=== PATIENT | male | born 1955 | race African-American/Black ===

== ENCOUNTER 2024-11-21 02:45 | Day surgery (SDC) | payer MEDICARE, OTHER, SELFPAY ==
[2024-11-11 08:21] VITALS: BMI 34.9
--- OUTSIDE RECORDS SUMMARY | 2024-11-21 02:49 | XMS_ITS | Encounter Summary ---
Author Organization [facility] Facility Care Team Providers Care Vp Product Management Name Role Phone Kyler Melchor MD Primary Care Provid er Encounter Details Date Type Department Care Team (Latest Contact Info) Description 05/26/2016 Orders Only [facility] CLINCONV ProviderBakari MD [address] [place] [address] Social History Tobacco Use Types Packs/Day Years Used Date Smoking Tobacco: Never Assessed Sex and Gender Information Value Date Recorded Sex Assigned at Not on file Legal Sex Male 7:45 PM ORE MINER Gender Identity Not on file Sexual Orientation Not on file documented as of this encounter Plan of Treatment Not on file documented as of this encounter Procedures Procedure Name Priority Date/Time Associated Diagnosis Comments SCAN - PATHOLOGY 05/26/2016 12:0 0 AM ORE MINER documented in this encounter Results * SCAN - PATHOLOGY (05/26/2016 12:00 AM ORE MINER) Narrative 05/26/2016 12:00 AM ORE MINER Ordered by an unspecified provider. us Historical Provider Final Res ult documented in this encounter Visit Diagnoses Not on filedocumented in this encounter Additional Health Concerns Infection Onset Date Last Indicated Resolved Time COVID: Suspected 07/28/2021 07/28/2021 07/29/2021 1:44 AM ORE MINER COVID19 07/28/2021 07/28/2021 08/07/2021 3:05 AM ORE MINER COVID: Recovered Comment:Added based on recent COVID infection. 08/07/2021 08/18/2021 12/05/2021 3:05 AM C DT COVID: Suspected 08/23/2023 08/23/2023 08/23/2023 1:56 PM ORE MINER COVID19 08/23/2023 08/23/2023 09/02/2023 3:05 AM ORE MINER COVID: Recovered Comment:Added based on recent COVID infection. 09/02/2023 09/07/2023 12/01/2023 3:05 AM C DT documented as of this encounter Care Teams Vp Product Management Relationship Specialty Start Date End Date Kyler Melchor MD [address] [place] [address] PCP - General 10/03/18 documented as of this encounter
--- OUTSIDE RECORDS SUMMARY | 2024-11-21 02:49 | XMS_ITS | Encounter Summary ---
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 us Historical Provider Final Res ult documented in this encounter Visit Diagnoses Not on filedocumented in this encounter Additional Health Concerns Infection Onset Date Last Indicated Resolved Time COVID: Suspected 07/28/2021 07/28/2021 07/29/2021 1:44 AM EARLY CHILDHOOD ASSISTANT COVID19 07/28/2021 07/28/2021 08/07/2021 3:05 AM EARLY CHILDHOOD ASSISTANT COVID: Recovered Comment:Added based on recent COVID infection. 08/07/2021 08/18/2021 12/05/2021 3:05 AM C DT COVID: Suspected 08/23/2023 08/23/2023 08/23/2023 1:56 PM EARLY CHILDHOOD ASSISTANT COVID19 08/23/2023 08/23/2023 09/02/2023 3:05 AM EARLY CHILDHOOD ASSISTANT COVID: Recovered Comment:Added based on recent COVID infection. 09/02/2023 09/07/2023 12/01/2023 3:05 AM C DT documented as of this encounter Care Teams Repairer Screen Crusher Relationship Specialty Start Date End Date Kyler Melchor MD [address] [place] [address] PCP - General 10/03/18 documented as of this encounter
--- OUTSIDE RECORDS SUMMARY | 2024-11-21 02:49 | XMS_ITS | Clinical Summary ---
Author Organization [facility] Address [address] [place] [id number] Care Team Providers Care Screener Perfumer Name Role Phone Kyler Melchor MD Primary Care Provider + [phone] Social History Tobacco Use Types Packs/Day Years Used Date Smoking Tobacco: Never Assessed Sex and Gender Information Value Date Recorded Sex Assigned at Not on file Legal Sex Male 7:53 PM CDT Gender Identity Not on file Sexual Orientation Not on file Plan of Treatment Health Maintenance Due Date Last Done Comments Colorectal Cancer Screening Colonoscopy (10 Years) 1955 Hepatitis C 1974 DTaP, Tdap and Td Vaccines ( 1 - Tdap) 09/26/1975 Pneumococcal Vaccine: 50+ Years (1 of 1 - PCV) 2006 Zoster Vaccines (1 of 2) 2006 COVID-19 Vaccine ( - 2023-2 5 season) 2024 RSV Immunization or 60+ Years (1 - 1-dose 75+ series) 09/26/2031 Colorectal Cancer Screening FIT/FOBT (1 Year) Discontinued 08/08/2018, 08/08/2018, 08/08/2018 Meningococcal B Vaccine Aged Out No l onger eligible based on patient's age to complete this topic Meningococcal Vaccine Aged Out No antelmo destin eligible based on patient's age to complete this topic RSV Immunizations Under 20 Months Aged Out No longer eligible based on patient's age to complete this topic Procedures Procedure Name Priority Date/Time Associated Diagnosis Comments OCCULT BLOOD, FECES Routine 08/08/2018 2 :30 PM ASSET CARD CLERK Diarrhea from Last 3 Months or Most Recently Relevant to Health Maintenance Results * OCCULT BLOOD, FECES (08/08/2018 2:30 PM ASSET CARD CLERK) OCCULT BLOOD FECAL NEGATIVE NEGATIVE 08/08/2018 7:14 PM ASSET CARD CLERK [facility] STOOL SPECIMEN / Unknown 08/08/2018 2:30 PM ASSET CARD CLERK us Neville Mustafa MD BODY FLUIDS AND STOOLS ORDERABL ES Final Result [facility] [address] [facility] [place] [address], [place] [phone] from Last 3 Months or Most Recently Relevant to Health Maintenance Insurance Care Teams Screener Perfumer Relationship Specialty Start Date End Date Kyler Melchor MD [address] [facility] [place] [address] PCP - General FAMILY PRACTICE 07/16/18
--- OUTSIDE RECORDS SUMMARY | 2024-11-21 02:49 | XMS_ITS | Encounter Summary ---
Author Organization [facility] Facility Care Team Providers Care Anesthesia Assistant Name Role Phone Kyler Melchor MD Primary Care Provid er Encounter Details Date Type Department Care Team (Latest Contact Info) Description 04/26/2017 Orders Only [facility] CLINCONV ProviderBakari MD [address] [place] [address] Social History Tobacco Use Types Packs/Day Years Used Date Smoking Tobacco: Never Assessed Sex and Gender Information Value Date Recorded Sex Assigned at Not on file Legal Sex Male 7:45 PM COMMODITY MANAGER Gender Identity Not on file Sexual Orientation Not on file documented as of this encounter Plan of Treatment Not on file documented as of this encounter Procedures Procedure Name Priority Date/Time Associated Diagnosis Comments SCAN - PATHOLOGY 04/26/2017 12:0 0 AM CDT documented in this encounter Results * SCAN - PATHOLOGY (04/26/2017 12:00 AM CDT) Narrative 04/26/2017 12:00 AM CDT Ordered by an unspecified provider. us Historical Provider Final Res ult documented in this encounter Visit Diagnoses Not on filedocumented in this encounter Additional Health Concerns Infection Onset Date Last Indicated Resolved Time COVID: Suspected 07/28/2021 07/28/2021 07/29/2021 1:44 AM COMMODITY MANAGER COVID19 07/28/2021 07/28/2021 08/07/2021 3:05 AM COMMODITY MANAGER COVID: Recovered Comment:Added based on recent COVID infection. 08/07/2021 08/18/2021 12/05/2021 3:05 AM C DT COVID: Suspected 08/23/2023 08/23/2023 08/23/2023 1:56 PM COMMODITY MANAGER COVID19 08/23/2023 08/23/2023 09/02/2023 3:05 AM COMMODITY MANAGER COVID: Recovered Comment:Added based on recent COVID infection. 09/02/2023 09/07/2023 12/01/2023 3:05 AM C DT documented as of this encounter Care Teams Anesthesia Assistant Relationship Specialty Start Date End Date Kyler Melchor MD [address] [place] [address] PCP - General 10/03/18 documented as of this encounter
--- OUTSIDE RECORDS SUMMARY | 2024-11-21 02:49 | XMS_ITS | Encounter Summary ---
Author Organization [facility] Facility Care Team Providers Care Euclid Operator Name Role Phone Kyler Melchor MD Primary Care Provid er Encounter Details Date Type Department Care Team (Latest Contact Info) Description 09/24/2018 Orders Only [facility] CLINCONV ProviderBakari MD [address] [place] [address] Social History Tobacco Use Types Packs/Day Years Used Date Smoking Tobacco: Never Assessed Sex and Gender Information Value Date Recorded Sex Assigned at Not on file Legal Sex Male 7:45 PM CS ASSOCIATE Gender Identity Not on file Sexual Orientation Not on file documented as of this encounter Plan of Treatment Not on file documented as of this encounter Procedures Procedure Name Priority Date/Time Associated Diagnosis Comments COLONOSCOPY - SCAN 09/24/2018 12 :00 AM CDT documented in this encounter Results * COLONOSCOPY - SCAN (09/24/2018 12:00 AM CDT) Narrative 09/24/2018 12:00 AM CDT Ordered by an unspecified provider. us Historical Provider Final Res ult documented in this encounter Visit Diagnoses Not on filedocumented in this encounter Additional Health Concerns Infection Onset Date Last Indicated Resolved Time COVID: Suspected 07/28/2021 07/28/2021 07/29/2021 1:44 AM CS ASSOCIATE COVID19 07/28/2021 07/28/2021 08/07/2021 3:05 AM CS ASSOCIATE COVID: Recovered Comment:Added based on recent COVID infection. 08/07/2021 08/18/2021 12/05/2021 3:05 AM C DT COVID: Suspected 08/23/2023 08/23/2023 08/23/2023 1:56 PM CS ASSOCIATE COVID19 08/23/2023 08/23/2023 09/02/2023 3:05 AM CS ASSOCIATE COVID: Recovered Comment:Added based on recent COVID infection. 09/02/2023 09/07/2023 12/01/2023 3:05 AM C DT documented as of this encounter Care Teams Euclid Operator Relationship Specialty Start Date End Date Kyler Melchor MD [address] [place] [address] PCP - General 10/03/18 documented as of this encounter
--- OUTSIDE RECORDS SUMMARY | 2024-11-21 02:49 | XMS_ITS | Clinical Summary ---
Author Organization [address] Address [address] [place] [address] [place] [address] Care Team Providers Care Software Application Tester Name Role Phone Kyler Melchor MD Primary Care Provid er Allergies Active Allergy Reactions Criticality Noted Date Comments Ibuprofen Hives Medium 01/28/2019 Penicillin V Potassium Hives Medium 01/28/2019 Medications vitamin E acetate (VITAMIN E ORAL) Rx: Vitamin E Active multivit-min/iro n/folic acid/K (ADULTS MULTIVITAMIN ORAL) Rx: Multivitamin Adult - Tablet Active UNABLE TO FIND Med Name: Roadmapollgen 1 capsule daily Active atorvastatin (LIPITOR) 20 mg tabletIndication s:Dyslipidemia Take 1 tablet (20 mg total) by mouth daily 100 tablet 1 07/24/[address] (PROTONIX) 40 mg EC tabletIndication s:Gastroesophage al reflux disease without esophagitis Take 1 tablet (40 mg total) by mouth daily 100 tablet 1 07/25/19 25 Active metFORMIN XR (GLUCOPHAGE XR) 750 mg 24 hr tabletIndication s:Controlled type 2 diabetes mellitus without complication, without long-term current use of insulin (HCC) Take 1 tablet (750 mg total) by mouth 2 (two) times a day with meals 180 tablet 09/24/19 25 Active urea (CARMOL) 10 % creamIndications :Hyperkeratosis Apply topically as needed for dry skin 71 g 1 10/24/19 25 Active urea (CARMOL) 10 % creamIndications :Hyperkeratosis Apply topically as needed for dry skin 71 g 08/19/19 25 025 Discontin ued(Reord er) Active Problems Problem Noted Date Diagnosed Date Encounter for Medicare annual wellness exam 09/2024 Overview (09/10/2024): PMH: Last PSA: elevated, following with urology Last colonoscopy/cologuard: 10/2023, repeat 5 years Last Hep C: negative 2016 Last tdap: Reminded to get out pharmacy Last Prevnar/pneumovax: 09/10/24 Last Shingrix: Encouraged Last influenza: Up-to-date Last COVID: Up-to-date Last eye exam: Up-to-date Assessment & Plan (09/10/2024 10:24 AM CPR INSTRUCTOR): PMH: 09/10/24 Last PSA: elevated, following with urology Last colonoscopy/cologuard: 10/2023, repeat 5 years Last Hep C: negative 2016 Last tdap: Reminded to get out pharmacy Last Prevnar/pneumovax: 09/10/24 Last Shingrix: Encouraged Last influenza: Up-to-date Last COVID: Up-to-date Last eye exam: Up-to-date Controlled type 2 diabetes m moni without complication, without long-term current use of insulin 07/24/2024 Assessment & Plan (07/24/2024 4:05 PM CPR INSTRUCTOR): Chronic. Controlled. Last A1c of 6.5 on 08/2023. Continue metformin 750 mg daily, refilled today. Patient isn't on a statin. Monitor blood pressure. May need to start Douglas or Arb at next visit. He declines pneumonia vaccine today. Also declines single shingles vaccine. Patient given handout on diabetic diet. Encouraged to decrease carbohydrates.. Reminded patient to let eye doctor know that he has diabetes for eye exam. Class 2 severe obesity due t o excess calories with serious comorbidity and body mass index (BMI) of 35.0 to 35.9 in adult 07/24/2024 Assessment & Plan (09/10/2024 10:22 AM CPR INSTRUCTOR): Exercise 5 days a week, 30 mins per day recommended. Eat a heart healthy diet consisting of good, healthy protein (eggs, nuts, peanut butter, chicken, fish, turkey, less pork/beef), lots of vegetables, less carbohydrates and less sugar. Assessment & Plan (08/19/2024 10:13 AM CPR INSTRUCTOR): BMI Follow-up includes: education provided. Assessment & Plan (07/24/2024 4:04 PM CPR INSTRUCTOR): BMI Follow-up includes: nutrition counseling and exercise counseling. Gastroesophageal reflux disease without esophagi tis 07/24/2024 Assessment & Plan (07/24/2024 4:06 PM CPR INSTRUCTOR): Chronic. Stable. Continue to follow with GI, managing pantoprazole. 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 Stable. Continue rosuvastatin 20 mg, refilled today. Resolved Problems Problem Noted Date Diagnosed Date Resolved Date Nicotine dependence, cigaret trell, uncomplicated 10/04/2018 06/21/2022 Encounters Date Type Department Care Team Description 11/12/2024 7:[address] [facility] [address] [place] [address] 09/10/2024 10:10 AM CPR INSTRUCTOR Lab [facility] [address] [place] [id number] Controlled type 2 diabetes mellitus without complication, without long-term current use of insulin (HCC) 09/10/2024 9:30 AM CPR INSTRUCTOR Office Visit [facility] [address] [place] [phone] Elida Jacinto PA Encounter for Medicare annual wellness exam (Primary Dx); Controlled type 2 diabetes mellitus without complication, without long-term current use of insulin (HCC); Class 2 severe obesity due to excess calories with serious comorbidity and body mass index (BMI) of 35.0 to 35.9 in adult (HCC); Dyslipidemia; Gastroesophageal reflux disease without esophagitis; Obstructive sleep apnea (adult) (pediatric); Need for vaccination 09/10/2024 Results Follow-Up [facility] [address] [phone] Elida Jacinto PA Controlled type 2 diabetes mellitus without complication, without long-term current use of insulin ([facility]) 09/10/2024 Telephone [facility] [address] [phone] Elida Jacinto PA 08/29/2024 12:20 PM CPR IN[address] Lab [facility] Lab [address] [place] [id number] Controlled type 2 diabetes mellitus without complication, without long-term current use of insulin ([facility]); Inadequately controlled diabetes mellitus ([facility]); Elevated PSA; Encounter for Medicare annual wellness exam; Dyslipidemia from Last 3 Months Immunizations Immunization Administration Dates Next Due Flucelvax Influenza Quad 05/07/2020 Hep A, Adult 08/11/1997 Influenza, Quadrivalent, Alley l Culture-based MDCK, Preservative Free, Antibiotic Free, Intramuscular 05/07/2020 Influenza, Quadrivalent, Hig h Dose, Preservative Free, Intrr 04/22/2023,04/04/2022 Influenza, Trivalent, High D ose, Split, Preservative Free, Intramuscular 04/02/2024 Influenza, Trivalent, IM (MDV) 04/09/2021 Influenza, Unspecified 06/12/2023(Deferr ed: Patient Refused),05/07/2020 Influenza, Whole 05/10/1999,08/11/1997 MMR 01/19/1989 OPV 12/24/1980 Pneumococcal Conjugate Pcv20 09/10/2024 Td, adsorbed 09/21/1992 Medical History Medical History Date Comments Dyslipidemia Impaired fasting glucose Obstructive sleep apnea GERD (gastroesophageal reflux disease) Family History Medical History Relation Name Comments Cancer Father Brendan Cancer Mother Betzaida Relation Name Status Comments Father Brendan Mother Betzaida Social History Tobacco Use Types Packs/Day Years Used Date Smoking Tobacco: Some Days Cigarettes Cigars Smokeless Tobacco: Never Alcohol Use Standard Drinks/Week Comments Yes 0 (1 standard drink = 0.6 oz pur e alcohol) AUDIT-C Answer Date Recorded Q1: How often do you have a drink containing alc ohol? 2-4 times a month 09/10/2024 Q2: How many drinks containi ng alcohol do you have on a typical day when you are drinking? 1 or 2 09/10/2024 Q3: How often do you have si x or more drinks on one occasion? Never 09/10/2024 PHQ-2 Answer Date Recorded PHQ-2 Total Score (If total score is 3 or more points, staff should administer the PHQ-9) 0 09/10/2024 PHQ-9 Answer Date Recorded PHQ-9 Total Score 0 09/10/2024 Personal Safety Answer Date Recorded Have you ever been in or are you currently in a harmful physical or emotional relationship or is someone making you feel afraid or unsafe? Denies 06/02/2023 Sex and Gender Information Value Date Recorded Sex Assigned at Not on file Legal Sex Male 7:45 PM CPR INSTRUCTOR Gender Identity Not on file Sexual Orientation Not on file Obstetrics History Last Filed Vital Signs Vital Sign Reading Time Taken Comments Blood Pressure 142/82 09/10/2024 9:30 AM CPR INSTRUCTOR Pulse 78 09/10/2024 9:30 AM CPR INSTRUCTOR Temperature 36.6 C (97.9 F) 09/10/2024 9:30 AM CPR INSTRUCTOR Respiratory Rate 16 09/10/2024 9:30 AM CPR INSTRUCTOR Oxygen Saturation 98% 09/10/2024 9:30 AM CPR INSTRUCTOR Inhaled Oxygen Concentration - - Weight 107.5 kg (237 lb) 09/10/2024 9:30 AM CPR INSTRUCTOR Height 175.3 cm (5' 9 ) 09/10/2024 9:30 AM CPR INSTRUCTOR Body Mass Index 35 09/10/2024 9:30 AM CPR INSTRUCTOR Plan of Treatment Health Maintenance Due Date Last Done Comments Hepatitis B Screening 1974 DTaP/Tdap/Td Vaccine (1 - Tdap) 09/22/1992 3 Zoster Vaccine (1 of 2) 2006 Covid-19 Vaccine (2023-2 5 season) 2024 04/02/2024, 04/22/2023, 11/15/2022, Additional history exists Dilated Eye Exam 12/04/2024 12/05/2023, 11/29/2023 Hemoglobin A1C 03/13/2025 09/10/2024, 2 , 09/01/2022, Additional history exists Foot Exam 07/24/2025 07/24/2024, 03/0 10/2023, 09/11/2023, Additional history exists Albumin Creatinine Ratio, Urine 08/29/2025 , 08/29/2023 Lipid Panel 08/29/2025 08/29/2024, 022 , 09/01/2022, Additional history exists Depression Screening 09/10/2025 09/10/2024, 09/10/2024, 08/19/2024, Additional history exists Fall Risk Assessment 09/10/2025 09/10/2024, 08/19/2024, 09/11/2023, Additional history exists Well Visit 65+ 09/10/2025 09/10/2024, 03/0 10/2023, 09/11/2023, Additional history exists eGFR 11/12/2025 11/12/2024, 2 , 08/29/2023, Additional history exists Prostate Cancer Screening-PSA 08/29/2026, 08/29/2023, 09/01/2022, Additional history exists Colon Cancer Screening-Colonoscopy 10/29/2028 10/30/2023, 09/17/2018 Hepatitis C Screening Completed 01/02/2017 Abdominal Aortic Aneurysm (A AA) Screen Completed 06/02/2023, 12/26/2022 Colon Cancer Screening-CT Colonography Discontinued 10/30/2023, 09/17/2018 Colon Cancer Screening-DNA Stool Discontinued 10/30/19, 09/17/2018 Colon Cancer Screening-FIT Discontinued 10/30/2023, Colon Cancer Screening-Sigmoidoscopy Discontinued 10/30/2023, 09/17/2018 Influenza Vaccine Completed 04/02/2024, , 04/04/2022, Additional history exists Pneumococcal vaccine 65+ Completed 09/10/2024 Procedures Procedure Name Priority Date/Time Associated Diagnosis Comments EGFR Routine 11/12/2024 7:36 AM CDT BASIC METABOLIC PANEL Routine 11/12/2024 7:36 AM CDT HEMOGLOBIN A1C Routine 09/10/2024 10:14 AM CPR INSTRUCTOR Controlled type 2 diabetes mellitus without complication, without long-term current use of insulin (HCC) EGFR Routine 08/29/2024 12:40 PM CPR INSTRUCTOR Controlled type 2 diabetes mellitus without complication, without long-term current use of insulin (HCC) Inadequately controlled diabetes mellitus (HCC) Elevated PSA Encounter for Medicare annual wellness exam Dyslipidemia DIFFERENTIAL AUTO Routine 08/29/2024 12: 40 PM CPR INSTRUCTOR Controlled type 2 diabetes mellitus without complication, without long-term current use of insulin (HCC) Inadequately controlled diabetes mellitus (HCC) Elevated PSA Encounter for Medicare annual wellness exam Dyslipidemia CBC WITH AUTO DIFFERENTIAL Routine 08/29/2024 12:40 PM CPR INSTRUCTOR Controlled type 2 diabetes mellitus without complication, without long-term current use of insulin (HCC) Inadequately controlled diabetes mellitus (HCC) Elevated PSA Encounter for Medicare annual wellness exam Dyslipidemia COMPREHENSIVE METABOLIC PANEL Routine 08/29/2024 12:40 PM CPR INSTRUCTOR Controlled type 2 diabetes mellitus without complication, without long-term current use of insulin (HCC) Inadequately controlled diabetes mellitus (HCC) Elevated PSA Encounter for Medicare annual wellness exam Dyslipidemia LIPID PANEL Routine 08/29/2024 12:40 PM CPR INSTRUCTOR Controlled type 2 diabetes mellitus without complication, without long-term current use of insulin (HCC) Inadequately controlled diabetes mellitus (HCC) Elevated PSA Encounter for Medicare annual wellness exam Dyslipidemia PSA SCREEN Routine 08/29/2024 12:40 PM CPR INSTRUCTOR Controlled type 2 diabetes mellitus without complication, without long-term current use of insulin (HCC) Inadequately controlled diabetes mellitus (HCC) Elevated PSA Encounter for Medicare annual wellness exam Dyslipidemia ALBUMIN CREATININE RATIO, URINE Routine 08/29/2024 12:40 PM CPR INSTRUCTOR Controlled type 2 diabetes mellitus without complication, without long-term current use of insulin (HCC) Inadequately controlled diabetes mellitus (HCC) Elevated PSA Encounter for Medicare annual wellness exam Dyslipidemia DIABETES EYE EXAM Routine 12/05/2023 COLONOSCOPY Routine 10/30/2023 CT ABDOMEN PELVIS W CONTRAST ED 06/02/2023 1:14 PM CPR INSTRUCTOR HEPATITIS C ANTIBODY Routine 01/02/2017 9:25 AM CDT from Last 3 Months or Most Recently Relevant to Health Maintenance Results * eGFR (11/12/2024 7:36 AM CDT) eGFR 80 >=60 mL/min/1. 73 m2 Comment: Interpretive Data Reference Interval Normal >/= 90 mL/min/1.73m2 Mildly decreased* 60 - 89 mL/min/1.73m2 Mildly to moderately decreased 45 - 59 mL/min/1.73m2 Moderately to severely decreased 30 - 44 mL/min/1.73m2 Severely decreased 15 - 29 mL/min/1.73m2 Kidney Failure < 15 mL/min/1.73m2 *Relative to young adult level Estimated glomerular filtration rate is determined by the 2020 CKD-EPI equation recommended by the National Kidney Foundation (A Unifying Approach to GFR Estimation: Recommendations of the NKF-ASK Task Force on Reassessing the Inclusion of Race in Diagnosing Kidney Disease, JASN 2020). The CKD-EPI equation should not be used for patients with unstable renal function and has not been validated in children and those over 70. Current interpretive data was last reviewed 2021. Testing performed by: [facility], [address] [place] [address]., [id number] Blood 11/12/2024 7:36 AM CDT 11/12/2024 7:44 AM CDT us Codey Greer MD LAB BLOOD ORDERABLES Final Re sult [facility] [address] [facility] Department [place] [address] * Basic metabolic panel (11/12/2024 7:36 AM CDT) Sodium 139 135 - 145 mmol/L Comment:Testing performed by : [address] [address] Potassium, pl 4.3 3.3 - 4.9 mmol/L [facility] Comment: Hemolyzed; Potassium value may be falsely elevated by as much as 1.0 mmol/L. Suggest redraw and reanalysis. Testing performed by: [address], [place]., [address] Chloride 102 97 - 110 mmol/L [facility] Comment:Testing performed by : [address], [place]., [address] CO2 26 22 - 32 mmol/L [facility] Comment:Testing performed by : [address], [place]., [address] Anion gap 11 2 - 15 mmol/L [facility] Comment:Testing performed by : [address] [address] BUN 10 6 - 25 mg/dL [facility] Comment:Testing performed by : [address], [place]., [address] Creatinine 1.02 0.80 - 1.30 mg/dL [facility] Comment:Testing performed by : [address] [address] Glucose 122 70 - 199 mg/dL [facility] Comment: Interpretive Data Fasting glucose >/= 126 mg/dl is diagnostic for diabetes. Fasting is defined as no caloric intake for at least 8 hours. Fasting glucose between 100 mg/dl to 125 mg/dl is diagnostic of prediabetes. In a patient with classic symptoms of hyperglycemia or hyperglycemic crisis, a random glucose >/= 200 mg/dl is diagnostic for diabetes. In the absence of unequivocal hyperglycemia, results should be confirmed by repeat testing. The classification and Diagnosis of Diabetes Diabetes Care 202; 46: S19-S40. Current interpretive data was last revised 2022. Testing performed by: [address], [place]., [address] Calcium 9.7 8.5 - 10.3 mg/dL [facility] Comment:Testing performed by : [address] [address] Blood 11/12/2024 7:36 AM CDT 11/12/2024 7:44 AM CDT Codey Greer MD LAB BLOOD ORDERABLES Final Re sult Performing Organization Address [facility] de Phone Number [address] [place] [address] * (ABNORMAL) Hemoglobin A1c (09/10/2024 10:14 AM CPR INSTRUCTOR) Hgb A1C 6.7(H) 4.0 - 5.6 % Comment:Testing performed by : [address] [address] Estimated Average Glucose 146 mg/dL [facility] Comment: The ADA recommends reporting an estimated Average Glucose (eAG) with all Hemoglobin A1c results using the equation derived from a study of 507 normal and diabetic adults. Minority populations were underrepresented and children were not included. (Diabetes Care 31:0403-4838, 2008). The eAG is not equivalent to a fasting glucose. Testing performed by: [address] [address] Blood 09/10/2024 10:1 4 AM CPR INSTRUCTOR 09/10/2024 12:17 PM CPR INSTRUCTOR Elida ART LAB BLOOD ORDERABLES Nellie l Result Performing Organization Address [facility] [[email or web address]] Co de Phone Number [facility] [address] [facility] [employer] [place] [address] * eGFR (08/29/2024 12:40 PM CPR INSTRUCTOR) Pathologist [facility] eGFR 74 >=60 mL/min/1. 73 m2 Comment: Interpretive Data Reference Interval Normal >/= 90 mL/min/1.73m2 Mildly decreased* 60 - 89 mL/min/1.73m2 Mildly to moderately decreased 45 - 59 mL/min/1.73m2 Moderately to severely decreased 30 - 44 mL/min/1.73m2 Severely decreased 15 - 29 mL/min/1.73m2 Kidney Failure < 15 mL/min/1.73m2 *Relative to young adult level Estimated glomerular filtration rate is determined by the 2020 CKD-EPI equation recommended by the National Kidney Foundation (A Unifying Approach to GFR Estimation: Recommendations of the NKF-ASK Task Force on Reassessing the Inclusion of Race in Diagnosing Kidney Disease, JASN 202). The CKD-EPI equation should not be used for patients with unstable renal function and has not been validated in children and those over 70. Current interpretive data was last reviewed 2021. Testing performed by: [address] [address] Blood 08/29/2024 12:4 0 PM CPR INSTRUCTOR 08/29/2024 1:05 PM CPR INSTRUCTOR Kyler Melchor MD LAB BLOOD ORDERABLES Final Result Performing Organization Address City/State/[facility] [[email or web address]] Co de Phone Number [facility] Department [place] [address] * (ABNORMAL) Differential, auto (08/29/2024 12:40 PM CPR INSTRUCTOR) Neutrophil abs 4.2 1.5 - 6.5 K/cumm Comment:Testing performed by : [address] [address] Imm gran abs 0.0 0.0 - 0.1 K/cumm [facility] Comment:Testing performed by : [address] [address] Lymphocyte abs 4.0(H) 0.8 - 3.3 K/cumm [facility] Comment:Testing performed by : [address] [address] Monocyte abs 0.7 0.2 - 0.8 K/cumm [facility] Comment:Testing performed by : [address] [address] Eosinophil abs 0.1 0.0 - 0.5 K/cumm [facility] Comment:Testing performed by : [address] [address] Basophil abs 0.1 0.0 - 0.1 K/cumm [facility] Comment:Testing performed by : [address] [address] Neutrophil pct 46.8 % [facility] Comment: Interpretive Data Percent cell count reference ranges are not reported, since discordance with absolute values may lead to misinterpretation of CBC data. Current Interpretive Data was last revised on 2017. Testing performed by: [address] [address] Imm gran pct 0.1 % [facility] Comment: Interpretive Data Percent cell count reference ranges are not reported, since discordance with absolute values may lead to misinterpretation of CBC data. Current Interpretive Data was last revised on 2017. Testing performed by: [address] [address] Lymphocyte pct 44.1 % [facility] Comment: Interpretive Data Percent cell count reference ranges are not reported, since discordance with absolute values may lead to misinterpretation of CBC data. Current Interpretive Data was last revised on 2017. Testing performed by: [address] [address] Monocyte pct 7.5 % [facility] Comment: Interpretive Data Percent cell count reference ranges are not reported, since discordance with absolute values may lead to misinterpretation of CBC data. Current Interpretive Data was last revised on 2017. Testing performed by: [address] [address] Eosinophil pct 0.8 % [facility] Comment: Interpretive Data Percent cell count reference ranges are not reported, since discordance with absolute values may lead to misinterpretation of CBC data. Current Interpretive Data was last revised on 2017. Testing performed by: [address] [address] Basophil pct 0.7 % [facility] Comment: Interpretive Data Percent cell count reference ranges are not reported, since discordance with absolute values may lead to misinterpretation of CBC data. Current Interpretive Data was last revised on 2017. Testing performed by: [address] [address] Blood 08/29/2024 12:4 0 PM CPR INSTRUCTOR 08/29/2024 1:06 PM CPR INSTRUCTOR Kyler Melchor MD LAB BLOOD ORDERABLES Final Result Performing Organization Address [facility] de Phone Number [facility] [employer] [place] [address] * (ABNORMAL) PSA screen (08/29/2024 12:40 PM CPR INSTRUCTOR) PSA-Total 14.00(H) <=5.40 ng/mL Comment: Interpretive Data AGE SEX REFERENCE INTERVAL 0 minutes-150 years Female None 0 minutes-49 years Male None 50-59 years Male 0-3.90 60-69 years Male 0-5.40 70-79 years Male 0-6.20 80-150 years Male 0-6.20 The J[employer] PSA Total assay procedure was used. Results from different manufacturers or methods may not be comparable. Serial testing should be performed using the same method. Current interpretive data last revised 21. Testing performed by: [address] [address] Blood 08/29/2024 12:4 0 PM CPR INSTRUCTOR 08/29/2024 1:05 PM CPR INSTRUCTOR Kyler Melchor MD LAB BLOOD ORDERABLES Final Result Performing Organization Address [facility] de Phone Number [facility] [employer] [place] [address] * CBC with auto differential (08/29/2024 12:40 PM CPR INSTRUCTOR) WBC 9.0 3.8 - 9.9 K/cumm Comment:Testing performed by : [address] [address] Hgb 15.2 13.0 - 17.5 g/dL [facility] Comment:Testing performed by : [address] [address] Hct 46.1 38.9 - 50.3 % [facility] HER Comment:Testing performed by : [address] [address] Plt 259 150 - 400 K/cumm [facility] Comment:Testing performed by : [address] [address] MPV 9.7 9.1 - 12.3 fL [facility] Comment:Testing performed by : [address] [address] RBC 5.42 4.30 - 5.80 M/cumm [facility] Comment:Testing performed by : [address] [address] MCV 85.1 81.3 - 96.4 fL [facility] Comment:Testing performed by : [address] [address] MCH 28.0 27.1 - 33.3 pg [facility] Comment:Testing performed by : [address] [address] MCHC 33.0 32.3 - 35.7 g/dL [facility] Comment:Testing performed by : [address] [address] RDW CV 13.7 11.1 - 14.9 % [facility] Comment:Testing performed by : [address] [address] RDW SD 42.5 35.7 - 48.1 fL [facility] Comment:Testing performed by : [address] [address] NRBC abs 0.00 0.00 - 0.01 K/cumm [facility] Comment:Testing performed by : [address] [address] Blood 08/29/2024 12:4 0 PM CPR INSTRUCTOR 08/29/2024 1:06 PM CPR INSTRUCTOR us Kyler Melchor MD LAB BLOOD ORDERABLES Final Result [facility] [address] [facility] Department [place] [address] * Albumin Creatinine Ratio, Urine (08/29/2024 12:40 PM CPR INSTRUCTOR) Albumin Ur 15.6 mg/L Comment: Interpretive Data No reference range established. Current interpretive data was last revised 2018. Testing performed by: [address] [address] Creatinine Ur 248.0 mg/dL [facility] Comment: Interpretive Data No reference range established. Current interpretive data was last revised 2018. Testing performed by: [address] [address] Albumin Creatinine Ratio, Ur 6 1 - 29 mg/g RUBEN Comment:Testing performed by : [address] [address] Urine 08/29/2024 12:4 0 PM CPR INSTRUCTOR 08/29/2024 1:09 PM CPR INSTRUCTOR Kyler Melchor MD LAB URINE ORDERABLES Final Result RUBEN [address] [facility] Department [place] [address] * Lipid panel (08/29/2024 12:40 PM CPR INSTRUCTOR) Cholesterol 156 30 - 199 mg/dL Comment: Interpretive Data Ages < or = 19 years Acceptable: <170 mg/dL Borderline high: 170-199 mg/dL High: >or= 200 mg/dL Ages > or = 20 years Desirable: <200 mg/dL Borderline high: 200-239 mg/dL High: >or= 240 mg/dL Literature References: 1. Expert Panel on Integrated Guidelines for Cardiovascular Health and Risk Reduction in Children and Adolescents. Pediatrics 2011;128:S213 2. NCEP Expert Panel. Circulation 2004;110:227 Current Interpretive Data was last revised on 2018. Testing performed by: [address] [address] Triglycerides 105 <=149 mg/dL RUBEN Comment: Interpretive Data Ages < or = 9 years Acceptable: <75 mg/dL Borderline high: 75-99 mg/dL High: >or= 100 mg/dL Ages 10 to 20 years Acceptable: <90 mg/dL Borderline high: 90-129 mg/dL High: >or= 130 mg/dL Ages > or = 20 years Desirable: <150 mg/dL Borderline high: 150-199 mg/dL High: 200-499 mg/dL Very high: >or= 499 mg/dL Literature References: 1. Expert Panel on Integrated Guidelines for Cardiovascular Health and Risk Reduction in Children and Adolescents. Pediatrics 2011;128:S213 2. NCEP Expert Panel. Circulation 2004;110:227 Current Interpretive Data was last revised on 2018. Testing performed by: [address] [address] HDL 44 >=40 mg/dL RUBEN Comment: Interpretive Data Ages < or = 19 years Acceptable: >45 mg/dL Borderline low: 40-45 mg/dL Low: <40 mg/dL Ages > or = 20 years Desirable: >or= 60 mg/dL Low: <40 mg/dL Literature References: 1. Expert Panel on Integrated Guidelines for Cardiovascular Health and Risk Reduction in Children and Adolescents. Pediatrics 2011;128:S213 2. NCEP Expert Panel. Circulation 2004;110:227 Current Interpretive Data was last revised on 2018. Testing performed by: [address] [address] LDL, calculated 93 <=129 mg/dL RUBEN Comment: Interpretive Data Ages < or = 19 years Acceptable: <110 mg/dL Borderline high: 110-129 mg/dL High: >or= 130 mg/dL Ages > or = 20 years Optimal: <100 mg/dL Near optimal: 100-129 mg/dL Borderline high: 130-159 mg/dL High: >160 mg/dL Calculated using the Enrique LDL-C estimating equation. This equation was implemented on 2024. Prior to this date LDL-C was estimated using the Friedewald equation. Literature References: 1. Expert Panel on Integrated Guidelines for Cardiovascular Health and Risk Reduction in Children and Adolescents. Pediatrics 2011;128:S213 2. NCEP Expert Panel. Circulation 2004;110:227 3. Enrique Lind et al. GARRISON Cardiol. 2020 November 07;5(5):540-548. doi: 10.1001/[email or web address] Current Interpretive Data was last revised on 2024. Testing performed by: [facility], [address] [place] [address], [place]., [address] Non-HDL Cholesterol 112 mg/dL RUBEN HER Comment: Interpretive Data Ages < or = 19 years Acceptable: <120 mg/dL Borderline high: 120-144 mg/dL High: >145 mg/dL Ages > or = 20 years When triglycerides are >200 mg/dL, Non-HDL cholesterol is a secondary target of therapy with treatment goals that are 30 mg/dL greater than the LDL cholesterol target. Literature References: 1. Expert Panel on Integrated Guidelines for Cardiovascular Health and Ris [id number]|2024-11-21 12:52:50|2024-11-21 12:52:50|[id number]||||"Anes - Initial Pre Proc Eval Procedure: Operation Date: 11/21/24 13:00 Proposed Procedures p Trans Rectal Ultrasound Fusion Guided Prostate Biopsy - Fran Bowman MD Date/Time: 11/21/24 12:52 Surgeon: Fran Bowman MD Pre Op Diagnosis: elevated PSA Patient Data Age: 69 Gender: M Height: 1.73 m Weight: 102.7 kg Last Vital Signs Temp 36.4 C L 11/21/24 11:13 Pulse 64 11/21/24 11:13 Resp 16 11/21/24 11:13 BP 150/1 H 11/21/24 11:13 Pulse Ox 99 11/21/24 11:13 O2 Del Method Room Air 11/21/24 11:13 Allergies Allergy/AdvReac Type Severity Reaction Status Date / Time Penicillins Allergy Unknown hives and Verified 11/21/24 11:50 itching NSAIDS (Non-Steroidal Allergy hives and Verified 11/21/24 11:50 Anti-Inflamma itching Home Medications Medication Instructions Recorded Confirmed Type atorvastatin 20 mg tablet 20 mg PO DAILY 11/11/24 11/11/24 History metformin 750 mg tablet,extended 750 mg PO BID 11/11/24 11/11/24 History release 24 hr multivit,Ca,min-iron 8 mg-folic 1 tablet PO DAILY 11/11/24 11/11/24 History acid 200 mcg-lycopene 600 mcg tablet ([facility]) pantoprazole 40 mg tablet,delayed 40 mg PO DAILY 11/11/24 11/11/24 History release vitamin E 268 mg (400 unit) capsule 268 mg PO DAILY 11/11/24 11/11/24 History Laboratory Tests 11/21/24 11:26 POC Capillary Glucose 115 H mg/dl (65-105) Patient hx anesthesia problems: none Family hx anesthesia problems: none Results Review: All pre-operative results and documents have been reviewed as part of the pre-operative evaluation. [facility] Past Medical History Medical History (Updated 11/21/24 @ 12:53 by Codey Greer MD) Diabetes LAILA (obstructive sleep apnea) Social History Social History Tobacco type: cigars Additional smoking assessment comments: SMOKES A CIGAR EVERY 2 WK. X 3 YRS Alcohol intake: current Alcohol use details: ONE DRINK PER MONTH Living arrangements: with family Spiritual care concerns: No Anes - Eval Final PreProcedure Day of Procedure 11/21/24 12:52 Patient weight: obese Heart: regular rate and rhythm Lungs: clear to auscultation Airway: Mallampati scale class II Neurological: alert and oriented Last oral intake: >/= 8 hours ASA classification: III Emergent: no Anesthetic plan: proceed Anesthesia type and monitoring: general GIVS and standard monitoring Results Review: All pre-operative results and documents have been reviewed as part of the pre-operative evaluation. Informed Consent: The patient's anesthetic plan and its attendant risks and benefits were discussed with the patient/family/POA. Questions were solicited and answers provided to the satisfaction of the patient/family/POA."
--- OUTSIDE RECORDS SUMMARY | 2024-11-21 02:49 | XMS_ITS | Encounter Summary ---
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 09/02/2023 09/07/2023 12/01/2023 3:05 AM C DT documented as of this encounter Care Teams Bus Person Dishwasher Relationship Specialty Start Date End Date Kyler Melchor MD [address] [place] [address] PCP - General 10/03/18 documented as of this encounter
--- OUTSIDE RECORDS SUMMARY | 2024-11-21 02:49 | XMS_ITS | Referral Summary ---
Author Organization [address] Address [address] [place] [id number] Care Team Providers Care Hygiene Teacher Name Role Phone Kyler Melchor MD Primary Care Provid er Encounters Date Type Department Care Team Description 11/12/2024 7:30 AM CDT Lab [facility] [place] [facility] [address] [place] [address] 09/10/2024 Results Follow-Up [address] [phone] Elida Jacinto PA Controlled type 2 diabetes mellitus without complication, without long-term current use of insulin ([facility]) 09/10/[address] [phone] Elida Jacinto PA 09/10/2024 10:10 AM PAYROLL HUMAN RESOURCES ASSISTANT Lab [facility] [address] [place] [phone] Controlled type 2 diabetes mellitus without complication, without long-term current use of insulin (HCC) 09/10/2024 9:30 AM PAYROLL HUMAN RESOURCES ASSISTANT Office Visit [address] [phone] Elida Jacinto PA Encounter for Medicare annual wellness exam (Primary Dx); Controlled type 2 diabetes mellitus without complication, without long-term current use of insulin (HCC); Class 2 severe obesity due to excess calories with serious comorbidity and body mass index (BMI) of 35.0 to 35.9 in adult (HCC); Dyslipidemia; Gastroesophageal reflux disease without esophagitis; Obstructive sleep apnea (adult) (pediatric); Need for vaccination 08/29/2024 12:20 PM PAYROLL HUMAN RESOURCES ASSISTANT Lab [facility] [place] [facility] [address] [place] [id number] Controlled type 2 diabetes mellitus without complication, without long-term current use of insulin (HCC); Inadequately controlled diabetes mellitus (HCC); Elevated PSA; Encounter for Medicare annual wellness exam; Dyslipidemia from Last 3 Months Allergies Active Allergy Reactions Criticality Noted Date Comments Ibuprofen Hives Medium 01/28/2019 Penicillin V Potassium Hives Medium 01/28/2019 Medications vitamin E acetate (VITAMIN E ORAL) Rx: Vitamin E Active multivit-min/iro n/folic acid/K (ADULTS MULTIVITAMIN ORAL) Rx: Multivitamin Adult - Tablet Active UNABLE TO FIND Med Name: Bitnami 1 capsule daily Active atorvastatin (LIPITOR) 20 [...] Up-to-date Assessment & Plan (09/10/2024 10:24 AM PAYROLL HUMAN RESOURCES ASSISTANT): PMH: 09/10/24 Last PSA: elevated, following with urology Last colonoscopy/cologuard: 10/2023, repeat 5 years Last Hep C: negative 2016 Last tdap: Reminded to get out pharmacy Last Prevnar/pneumovax: 09/10/24 Last Shingrix: Encouraged Last influenza: Up-to-date Last COVID: Up-to-date Last eye exam: Up-to-date Controlled type 2 diabetes m moni without complication, without long-term current use of insulin 07/24/2024 Assessment & Plan (07/24/2024 4:05 PM PAYROLL HUMAN RESOURCES ASSISTANT): Chronic. Controlled. Last A1c of 6.5 on [...] 07/24/2024 Assessment & Plan (09/10/2024 10:22 AM PAYROLL HUMAN RESOURCES ASSISTANT): Exercise 5 days a week, 30 mins per day recommended. Eat a heart healthy diet consisting of good, healthy protein (eggs, nuts, peanut butter, chicken, fish, turkey, less pork/beef), lots of vegetables, less carbohydrates and less sugar. Assessment & Plan (08/19/2024 10:13 AM PAYROLL HUMAN RESOURCES ASSISTANT): BMI Follow-up includes: education provided. Assessment & Plan (07/24/2024 4:04 PM PAYROLL HUMAN RESOURCES ASSISTANT): BMI Follow-up includes: nutrition counseling and exercise counseling. Gastroesophageal reflux disease without esophagi tis 07/24/2024 Assessment & Plan (07/24/2024 4:06 PM PAYROLL HUMAN RESOURCES ASSISTANT): Chronic. Stable. Continue to follow with GI, managing pantoprazole. Dependence on other enabling machines and device s 01/06/2017 Obstructive sleep apnea (adult) (pediatric) 12/10 Dyslipidemia 12/26/2016 Assessment & Plan (07/24/2024 4:05 PM PAYROLL HUMAN RESOURCES ASSISTANT): Chronic. Stable. Continue rosuvastatin 20 mg, refilled today. Resolved Problems Problem Noted Date Diagnosed Date Resolved Date Nicotine dependence, cigaret trell, uncomplicated 10/04/2018 06/21/2022 Immunizations Immunization Administration Dates Next Due Flucelvax [...] Pneumococcal Conjugate Pcv20 09/10/2024 Td, adsorbed 09/21/1992 Social History Tobacco Use Types Packs/Day Years [...] on file Legal Sex Male 7:45 PM PAYROLL H[employer] RESOURCES ASSISTANT Gender Identity Not on file Sexual Orientation Not on file Last Filed Vital Signs Vital Sign Reading Time Taken Comments Blood Pressure 142/82 09/10/2024 9:30 AM PAYROLL HUMAN RESOURCES ASSISTANT Pulse 78 09/10/2024 9:30 AM PAYROLL HUMAN RESOURCES ASSISTANT Temperature 36.6 C (97.9 F) 09/10/2024 9:30 AM PAYROLL HUMAN RESOURCES ASSISTANT Respiratory Rate 16 09/10/2024 9:30 AM PAYROLL HUMAN RESOURCES ASSISTANT Oxygen Saturation 98% 09/10/2024 9:30 AM PAYROLL HUMAN RESOURCES ASSISTANT Inhaled Oxygen Concentration - - Weight 107.5 kg (237 lb) 09/10/2024 9:30 AM PAYROLL HUMAN RESOURCES ASSISTANT Height 175.3 cm (5' 9 ) 09/10/2024 9:30 AM PAYROLL HUMAN RESOURCES ASSISTANT Body Mass Index 35 09/10/2024 9:30 AM PAYROLL HUMAN RESOURCES ASSISTANT Plan of Treatment Not on file Procedures Procedure Name Priority Date/Time Associated Diagnosis Comments EGFR Routine 11/12/2024 7:36 AM CDT BASIC METABOLIC PANEL Routine 11/12/2024 7:36 AM CDT HEMOGLOBIN A1C Routine 09/10/2024 10:14 AM PAYROLL HUM[employer] RESOURCES ASSISTANT Controlled type 2 diabetes mellitus without complication, without long-term current use of insulin (HCC) EGFR Routine 08/29/2024 12:40 PM PAYROLL HUMAN RESOURCES ASSISTANT Controlled type 2 diabetes mellitus without complication, without long-term current use of insulin (HCC) Inadequately controlled diabetes mellitus (HCC) Elevated PSA Encounter for Medicare annual wellness exam Dyslipidemia DIFFERENTIAL AUTO Routine 08/29/2024 12: 40 PM PAYROLL HUMAN RESOURCES ASSISTANT Controlled type 2 diabetes mellitus without complication, without long-term current use of insulin (HCC) Inadequately controlled diabetes mellitus (HCC) Elevated PSA Encounter for Medicare annual wellness exam Dyslipidemia CBC WITH AUTO DIFFERENTIAL Routine 08/29/2024 12:40 PM PAYROLL HUMAN RESOURCES ASSISTANT Controlled type 2 diabetes mellitus without complication, without long-term current use of insulin (HCC) Inadequately controlled diabetes mellitus (HCC) Elevated PSA Encounter for Medicare annual wellness exam Dyslipidemia COMPREHENSIVE METABOLIC PANEL Routine 08/29/2024 12:40 PM PAYROLL HUMAN RESOURCES ASSISTANT Controlled type 2 diabetes mellitus without complication, without long-term current use of insulin (HCC) Inadequately controlled diabetes mellitus (HCC) Elevated PSA Encounter for Medicare annual wellness exam Dyslipidemia LIPID PANEL Routine 08/29/2024 12:40 PM PAYROLL HUMAN RESOURCES ASSISTANT Controlled type 2 diabetes mellitus without complication, without long-term current use of insulin (HCC) Inadequately controlled diabetes mellitus (HCC) Elevated PSA Encounter for Medicare annual wellness exam Dyslipidemia PSA SCREEN Routine 08/29/2024 12:40 PM PAYROLL HUMAN RESOURCES ASSISTANT Controlled type 2 diabetes mellitus without complication, without long-term current use of insulin (HCC) Inadequately controlled diabetes mellitus (HCC) Elevated PSA Encounter for Medicare annual wellness exam Dyslipidemia ALBUMIN CREATININE RATIO, URINE Routine 08/29/2024 12:40 PM PAYROLL HUMAN RESOURCES ASSISTANT Controlled type 2 diabetes mellitus without complication, without long-term current use of insulin (HCC) Inadequately controlled diabetes mellitus (HCC) Elevated PSA Encounter for Medicare annual wellness exam Dyslipidemia DIABETES EYE EXAM Routine 12/05/2023 COLONOSCOPY Routine 10/30/2023 CT ABDOMEN PELVIS W CONTRAST ED 06/02/2023 1:14 PM PAYROLL HUMAN RESOURCES ASSISTANT HEPATITIS C ANTIBODY Routine 01/02/2017 9:25 AM [...] was last reviewed 2021. Testing performed by: [address] [address] Blood 11/12/2024 7:36 AM CDT 11/12/2024 7:44 AM CDT Codey Greer MD LAB BLOOD ORDERABLES Final Re sult [facility] [address] [facility] [place] [address] * Basic metabolic panel (11/12/2024 7:36 AM CDT) Sodium 139 135 - 145 mmol/L Comment:Testing performed by : [address] [address] Potassium, pl 4.3 3.3 - 4.9 mmol/L RUBEN HER Comment: Hemolyzed; Potassium value may be falsely elevated by as much as 1.0 mmol/L. Suggest redraw and reanalysis. Testing performed by: [address] [address] Chloride 102 97 - 110 mmol/L RUBEN Comment:Testing performed by : [address] [address] CO2 26 22 - 32 mmol/L RUBEN Comment:Testing performed by : [address] [address] Anion gap 11 2 - 15 mmol/L RUBEN Comment:Testing performed by : [address] [address] BUN 10 6 - 25 mg/dL RUBEN Comment:Testing performed by : [address] [address] Creatinine 1.02 0.80 - 1.30 mg/dL RUBEN Comment:Testing performed by : [address] [address] Glucose 122 70 - 199 mg/dL RUBEN Comment: Interpretive Data Fasting glucose >/= 126 [...] was last revised 2022. Testing performed by: [address] [address] Calcium 9.7 8.5 - 10.3 mg/dL RUBEN Comment:Testing performed by : [address] [address] Blood 11/12/2024 7:36 AM CDT 11/12/2024 7:44 AM CDT us Codey Greer MD LAB BLOOD ORDERABLES Final Re sult RUBEN [address] [facility] [place] [address] * (ABNORMAL) Hemoglobin A1c (09/10/2024 10:14 AM PAYROLL HUMAN RESOURCES ASSISTANT) Hgb A1C 6.7(H) 4.0 - 5.6 % Comment:Testing performed by : [facility], [address] [place] [address]., [address] Estimated Average Glucose 146 mg/dL RUBEN Comment: The ADA recommends reporting an estimated Average Glucose (eAG) with all Hemoglobin A1c results using the equation derived from a study of 507 normal and diabetic adults. Minority populations were underrepresented and children were not included. (Diabetes Care 31:3637-0587, 2008). The eAG is not equivalent to a fasting glucose. Testing performed by: [facility], [address] [place] [address]., [address] Blood 09/10/2024 10:1 4 AM PAYROLL HUMAN RESOURCES ASSISTANT 09/10/2024 12:17 PM PAYROLL HUMAN RESOURCES ASSISTANT Elida ART LAB BLOOD ORDERABLES Nellie l Result RUBEN [address] [facility] [place] [address] * eGFR (08/29/2024 12:40 PM PAYROLL HUMAN RESOURCES ASSISTANT) Pathologist [facility] [place] eGFR 74 >=60 mL/min/1. 73 m2 Comment: [...] was last reviewed 2021. Testing performed by: [address] [address] Blood 08/29/2024 12:4 0 PM PAYROLL HUMAN RESOURCES ASSISTANT 08/29/2024 1:05 PM PAYROLL HUMAN RESOURCES ASSISTANT Kyler Melchor MD LAB BLOOD ORDERABLES Final Result [facility] [address] [facility] [place] [address] * (ABNORMAL) Differential, auto (08/29/2024 12:40 PM PAYROLL HUMAN RESOURCES ASSISTANT) Neutrophil abs 4.2 1.5 - 6.5 K/cumm Comment:Testing performed by : [address] [address] Imm gran abs 0.0 0.0 - 0.1 K/cumm RUBEN Comment:Testing performed by : [address] [address] Lymphocyte abs 4.0(H) 0.8 - 3.3 K/cumm RUBEN Comment:Testing performed by : [address] [address] Monocyte abs 0.7 0.2 - 0.8 K/cumm RUBEN Comment:Testing performed by : [address] [address] Eosinophil abs 0.1 0.0 - 0.5 K/cumm RUBEN Comment:Testing performed by : [address] [address] Basophil abs 0.1 0.0 - 0.1 K/cumm RUBEN Comment:Testing performed by : [address] [address] Neutrophil pct 46.8 % RUBEN Comment: Interpretive Data Percent cell count reference ranges are not reported, since discordance with absolute values may lead to misinterpretation of CBC data. Current Interpretive Data was last revised on 2017. Testing performed by: [address] [address] Imm gran pct 0.1 % [facility] Comment: Interpretive Data Percent cell count reference ranges are not reported, since discordance with absolute values may lead to misinterpretation of CBC data. Current Interpretive Data was last revised on 2017. Testing performed by: [address] [address] Lymphocyte pct 44.1 % [facility] Comment: Interpretive Data Percent cell count reference ranges are not reported, since discordance with absolute values may lead to misinterpretation of CBC data. Current Interpretive Data was last revised on 2017. Testing performed by: [address] [address] Monocyte pct 7.5 % [facility] Comment: Interpretive Data Percent cell count reference ranges are not reported, since discordance with absolute values may lead to misinterpretation of CBC data. Current Interpretive Data was last revised on 2017. Testing performed by: [address] [address] Eosinophil pct 0.8 % [facility] Comment: Interpretive Data Percent cell count reference ranges are not reported, since discordance with absolute values may lead to misinterpretation of CBC data. Current Interpretive Data was last revised on 2017. Testing performed by: [address] [address] Basophil pct 0.7 % [facility] Comment: Interpretive Data Percent cell count reference ranges are not reported, since discordance with absolute values may lead to misinterpretation of CBC data. Current Interpretive Data was last revised on 2017. Testing performed by: [address] [address] Blood 08/29/2024 12:4 0 PM PAYROLL HUMAN RESOURCES ASSISTANT 08/29/2024 1:06 PM PAYROLL HUMAN RESOURCES ASSISTANT us Kyler Melchor MD LAB BLOOD ORDERABLES Final Result RUBEN [address] [facility] [place] [address] * (ABNORMAL) PSA screen (08/29/2024 12:40 PM PAYROLL HUMAN RESOURCES ASSISTANT) PSA-Total 14.00(H) <=5.40 ng/mL Comment: Interpretive Data [...] data last revised 21. Testing performed by: [address] [address] Blood 08/29/2024 12:4 0 PM PAYROLL HUMAN RESOURCES ASSISTANT 08/29/2024 1:05 PM PAYROLL HUMAN RESOURCES ASSISTANT Kyler Melchor MD LAB BLOOD ORDERABLES Final Result Performing Organization Address City/State/[facility] Co de Phone Number [facility] Department [place] [address] * CBC with auto differential (08/29/2024 12:40 PM PAYROLL HUMAN RESOURCES ASSISTANT) [facility] WBC 9.0 3.8 - 9.9 K/cumm Comment:Testing performed by : [address] [address] Hgb 15.2 13.0 - 17.5 g/dL RUBEN HER Comment:Testing performed by : [address] [address] Hct 46.1 38.9 - 50.3 % RUBEN HER Comment:Testing performed by : [address] [address] Plt 259 150 - 400 K/cumm RUBEN HER Comment:Testing performed by : [address] [address] MPV 9.7 9.1 - 12.3 fL RUBEN HER Comment:Testing performed by : [address] [address] RBC 5.42 4.30 - 5.80 M/cumm RUBEN HER Comment:Testing performed by : [facility], [address] [place] [address]., [address] MCV 85.1 81.3 - 96.4 fL RUBEN HER Comment:Testing performed by : [address] [address] MCH 28.0 27.1 - 33.3 pg RUBEN HER Comment:Testing performed by : [address] [address] MCHC 33.0 32.3 - 35.7 g/dL RUBEN HER Comment:Testing performed by : [address] [address] RDW CV 13.7 11.1 - 14.9 % RUBEN HER Comment:Testing performed by : [address] [address] RDW SD 42.5 35.7 - 48.1 fL RUBEN HER Comment:Testing performed by : [address] [address] NRBC abs 0.00 0.00 - 0.01 K/cumm RUBEN HER Comment:Testing performed by : [address] [address] Blood 08/29/2024 12:4 0 PM PAYROLL HUMAN RESOURCES ASSISTANT 08/29/2024 1:06 PM PAYROLL HUMAN RESOURCES ASSISTANT Kyler Melchor MD LAB BLOOD ORDERABLES Final Result Performing Organization Address City/State/[facility] Co de Phone Number RUBEN [address] [facility] [place] [address] * Albumin Creatinine Ratio, Urine (08/29/2024 12:40 PM PAYROLL HUMAN RESOURCES ASSISTANT) Albumin Ur 15.6 mg/L Comment: Interpretive Data No reference range established. Current interpretive data was last revised 2018. Testing performed by: [address] [address] Creatinine Ur 248.0 mg/dL RUBEN HER Comment: Interpretive Data No reference range established. Current interpretive data was last revised 2018. Testing performed by: [address] [address] Albumin Creatinine Ratio, Ur 6 1 - 29 mg/g RUBEN HER Comment:Testing performed by : [address] [address] Urine 08/29/2024 12:4 0 PM PAYROLL HUMAN RESOURCES ASSISTANT 08/29/2024 1:09 PM PAYROLL HUMAN RESOURCES ASSISTANT Kyler Melchor MD LAB URINE ORDERABLES Final Result RUBEN [address] [facility] [place] [address] * Lipid panel (08/29/2024 12:40 PM PAYROLL HUMAN RESOURCES ASSISTANT) Cholesterol 156 30 - 199 mg/dL Comment: [...] last revised on 2018. Testing performed by: [address] [address] Triglycerides 105 <=149 mg/dL RUBEN HER Comment: Interpretive Data Ages [...] last revised on 2018. Testing performed by: [facility], [address] [place] [address]., [address] HDL 44 >=40 mg/dL RUBEN Comment: Interpretive Data Ages < or = 19 years Acceptable: >45 mg/dL Borderline low: 40-45 mg/dL Low: <40 mg/dL Ages > or = 20 years Desirable: >or= 60 mg/dL Low: <40 mg/dL Literature References: 1. Expert Panel on Integrated Guidelines for Cardiovascular Health and Risk Reduction in Children and Adolescents. Pediatrics 2011;128:S213 2. NCEP Expert Panel. Circulation 2003;110:227 Current Interpretive Data was last revised on 2018. Testing performed by: [address] [address] LDL, calculated 93 <=129 mg/dL RUBEN Comment: [...] NCEP Expert Panel. Circulation 2004;110:227 3. Enrique Castellanos al. GARRISON Cardiol. 2020 November 07;5(5):540-548. doi: 10.1001/jamacardio.2020.0013 Current Interpretive Data was last revised on 2024. Testing performed by: [address] [address] Non-HDL Cholesterol 112 mg/dL RUBEN Comment: Interpretive Data Ages < [...] last revised on 2018. Testing performed by: [address] [address] Chol/HDL ratio 4 RUBEN Comment:Testing performed by : [address] [address] Blood 08/29/2024 12:4 0 PM PAYROLL HUMAN RESOURCES ASSISTANT 08/29/2024 1:05 PM PAYROLL HUMAN RESOURCES ASSISTANT us Kyler Melchor MD LAB BLOOD ORDERABLES Final Result [facility] [place] [address] * Comprehensive metabolic panel (08/29/2024 12:40 PM PAYROLL HUMAN RESOURCES ASSISTANT) Sodium 140 135 - 145 mmol/L Comment:Testing performed by : [address] [address] Potassium, pl 4.1 3.3 - 4.9 mmol/L RUBEN Comment:Testing performed by : [address] [address] Chloride 104 97 - 110 mmol/L RUBEN Comment:Testing performed by : [address] [address] CO2 27 22 - 32 mmol/L RUBEN Comment:Testing performed by : [address] [address] Anion gap 9 2 - 15 mmol/L RUBEN Comment:Testing performed by : [address] [address] BUN 11 6 - 25 mg/dL RUBEN Comment:Testing performed by : [address] [address] Creatinine 1.09 0.80 - 1.30 mg/dL RUBEN Comment:Testing performed by : [address], [place]., [address] Glucose 124 70 - 199 mg/dL RUBEN [id number]|2024-11-11 08:02:20|2024-11-11 08:02:20|PC.NURSE||||" Report to the Outpatient Waiting Room, entrance under the green pavilion located off [facility], at time __11 AM on date __11/21/24 . Planned Procedure Time: ___1:00 PM . Time changes happen often and if your time is changed the preop area will call you the afternoon before. - You and your visitor will be asked to self-screen and do not enter if you have any COVID symptoms. Please call surgeon if you need to reschedule. - A mask is optional within the hospital at this time. Patients may have clear liquids (water, carbonated beverages, clear teas, apple juice) until 3 hours prior to surgery ( 10 AM ) with a maximum of 20 ounces. - No food from midnight until time of surgery and no smoking, or chewing tobacco (or any form of nicotine). No chewing gum, candy or mints. - Take only the following medications with a SIP of water on the morning of surgery: ____NONE DO NOT STOP ANY OF YOUR OTHER PRESCRIPTION MEDICATIONS PRIOR TO SURGERY EXCEPT THE FOLLOWING Hold all vitamins and supplements for 3 days per anesthesiologist.LAST DOSE 11/17/24 Medications to discontinue per physician NONE Please no make-up, nail setswana, hairspray, perfume, deodorant, or body powder the day of surgery. No jewelry (including any body piercings) or valuables the day of surgery, leave them at home. Please take a shower or bath the night before, or the morning of, surgery with an antibacterial soap. Wear comfortable, loose fitting clothing. Children are encouraged to wear pajamas. - Jewelry must be removed prior to entering the operating room. Rings and piercings that are not removed may be cut off. - The hospital will not accept responsibility for valuables. - Please leave all valuables, including medications, at home the day of surgery. If you are going home after surgery, a licensed automobile drivers must drive you home. - NO public transportation without another adult if you receive anesthesia. - We recommend that an adult stay with you for 24 hours following discharge. - We also recommend that you do not drive, make important decision, drink alcoholic beverages, or take any drugs that were not prescribed by your health care provider for at least 24 hours after your discharge time. Follow any additional instructions given to you from your surgeon. Telephone instructions given to ____PATIENT and asked if any additional questions and then verbalized understanding. Patient advised to call surgeon office or pre surgery nurse liaison [phone] if any additional questions."
--- NOTE | 2024-11-21 06:22 | WPDHPUPDATE1 ---
History and Physical Update Update Date/Time: 11/21/24 06:22 History and Physical has been reviewed, including an updated exam of the patient. There are NO changes in the patient's condition. Risks, benefits, and alternatives have been discussed and questions answered. Patient agrees to proceed with procedure.
[2024-11-21 11:13] VITALS: BP 150/1; PULSE 64; RESP 16; TEMP 36.4; O2SAT 99
[2024-11-21 11:29] LABS: Glucose Point of Care 115 mg/dl (65-105)
[2024-11-21] MEDS: LACTATED RINGERS 1,000 ML 30 ML IV CONT (11:33)
--- NOTE | 2024-11-21 12:52 | P.PNAN_ITS ---
Anes - Initial Pre Proc Eval Procedure: Operation Date: 11/21/24 13:00 Proposed Procedures p Trans Rectal Ultrasound Fusion Guided Prostate Biopsy - Fran Bowman MD Date/Time: 11/21/24 12:52 Surgeon: Fran Bowman MD Pre Op Diagnosis: elevated PSA Patient Data Age: 69 Gender: M Height: 1.73 m Weight: 102.7 kg Last Vital Signs Temp 36.4 C L 11/21/24 11:13 Pulse 64 11/21/24 11:13 Resp 16 11/21/24 11:13 BP 150/1 H 11/21/24 11:13 Pulse Ox 99 11/21/24 11:13 O2 Del Method Room Air 11/21/24 11:13 Allergies Allergy/AdvReac Type Severity Reaction Status Date / Time Penicillins Allergy Unknown hives and Verified 11/21/24 11:50 itching NSAIDS (Non-Steroidal Allergy hives and Verified 11/21/24 11:50 Anti-Inflamma itching Home Medications Medication Instructions Recorded Confirmed Type atorvastatin 20 mg tablet 20 mg PO DAILY 11/11/24 11/11/24 History metformin 750 mg tablet,extended 750 mg PO BID 11/11/24 11/11/24 History release 24 hr multivit,Ca,min-iron 8 mg-folic 1 tablet PO DAILY 11/11/24 11/11/24 History acid 200 mcg-lycopene 600 mcg tablet ([facility]) pantoprazole 40 mg tablet,delayed 40 mg PO DAILY 11/11/24 11/11/24 History release vitamin E 268 mg (400 unit) capsule 268 mg PO DAILY 11/11/24 11/11/24 History Laboratory Tests 11/21/24 11:26 POC Capillary Glucose 115 H mg/dl (65-105) Patient hx anesthesia problems: none Family hx anesthesia problems: none Results Review: All pre-operative results and documents have been reviewed as part of the pre- operative evaluation. [facility] Past Medical History Medical History (Updated 11/21/24 @ 12:53 by Codey Greer MD) Diabetes LAILA (obstructive sleep apnea) Social History Social History Tobacco type: cigars Additional smoking assessment comments: SMOKES A CIGAR EVERY 2 WK. X 3 YRS Alcohol intake: current Alcohol use details: ONE DRINK PER MONTH Living arrangements: with family Spiritual care concerns: No Anes - Eval Final PreProcedure Day of Procedure 11/21/24 12:52 Patient weight: obese Heart: regular rate and rhythm Lungs: clear to auscultation Airway: Mallampati scale class II Neurological: alert and oriented Last oral intake: >/= 8 hours ASA classification: III Emergent: no Anesthetic plan: proceed Anesthesia type and monitoring: general GIVS and standard monitoring Results Review: All pre-operative results and documents have been reviewed as part of the pre- operative evaluation. Informed Consent: The patient's anesthetic plan and its attendant risks and benefits were discussed with the patient/family/POA. Questions were solicited and answers provided to the satisfaction of the patient/family/POA.
[2024-11-21 13:43] VITALS: BP 130/80; PULSE 62; RESP 16; O2SAT 100
--- NOTE | 2024-11-21 13:47 | W.PM.PROC2 ---
Procedure Note - Detailed Date of Procedure 11/21/24 Pre-op Diagnosis Elevated PSA Post-op Diagnosis Same Procedure Performed UroNav prostate biopsy Surgeon Fran Bowman MD Anesthesia General Description of Procedure Patient is brought to the operative suite where he is positioned in the left lateral position. Systemic sedation is administered per the anesthesia department. Surgical time-out is undertaken and it's verified the patient has received preoperative antibiotics. Transrectal ultrasonography is undertaken with a standard transrectal probe. The [employer] system is used to superimpose his previously obtained mpMRI prostate images on the real-time transrectal ultrasound images. On the previous mpMRI there is one regions of interest. Using the transrectal needle design for prostate biopsies 3 cores from each region of interest her obtain. We then proceeded with a standard 12 core prostate biopsy. Transrectal probe was removed and patient taken to recovery room having tolerated the procedure well. Blood loss was less than 10 cc. Packing No Pathology None sent Complications No immediate complications Condition Stable
[2024-11-21 13:52] LABS: Glucose Point of Care 103 mg/dl (65-105)
[2024-11-21 14:13] VITALS: BP 124/83; PULSE 55; RESP 16
[2024-11-21 14:37] VITALS: BP 146/68; PULSE 51; RESP 16
== END 2024-11-21 14:43 | disposition home or self-care (01) ==
PROVIDERS: Visit Provider Urology
PROC: (CPT 55700; principal; 2024-11-21 13:00)
DX: R97.20 Elevated prostate specific antigen [PSA] (principal); E11.9 Type 2 diabetes mellitus without complications; G47.33 Obstructive sleep apnea (adult) (pediatric); K21.9 Gastro-esophageal reflux disease without esophagitis; F17.290 Nicotine dependence, other tobacco product, uncomplicated; E66.9 Obesity, unspecified; Z68.34 Body mass index [BMI] 34.0-34.9, adult; Z79.84 Long term (current) use of oral hypoglycemic drugs; Z98.890 Other specified postprocedural states; Z87.19 Personal history of other diseases of the digestive system; Z80.3 Family history of malignant neoplasm of breast; Z80.41 Family history of malignant neoplasm of ovary
CPT/HCPCS: 76872; 55700; 82948; G0416; J0696; J2003; J2704; J3010; J7120